=== PATIENT | female | born 1985 | race Caucasian/White ===

== ENCOUNTER 2016-09-02 23:22 | Emergency (ER) | payer OTHER ==
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
[~2016-09-02 23:22] MED LIST: AZITHROMYCIN250 MG PO; BENADRYL25 M1 PO; CIPRO PO; FIORINAL CAPSUL1 CAP PO; FLEXERIL10 M1 PO; FLONASE16 GM; HYDROCHLOROTHIA25 MG PO; IMITREX PO; LISINOPRIL-HCTZ1 T19 PO; MIDRIN CAPSULE1 CA1; PREDNISONE PO; PYRIDIUM PO; TESSALON200 MG PO; VICODIN 5/1 TAB 5/50 PO; VOLTAREN75 MG PO; ZESTRIL10 M1 PO; ZYRTEC10 M2 PO
== END 2016-09-03 01:41 | disposition home or self-care (01) ==
LOC: SED 23:22
DX: S16.1XXA Strain of muscle, fascia and tendon at neck level, initial encounter (principal); S39.012A Strain of muscle, fascia and tendon of lower back, initial encounter; I10 Essential (primary) hypertension; V49.60XA Unspecified car occupant injured in collision with unspecified motor vehicles in traffic accident, initial encounter; Y92.488 Other paved roadways as the place of occurrence of the external cause
CPT/HCPCS: 72040; 96372; 99283; J1885